=== PATIENT | female | born 1965 | race Two or more races ===

== ENCOUNTER 2024-10-17 06:48 | Emergency (ER) | payer BC ==
[~2024-10-17] VITALS: Ht 160 cm; Wt 86.2 kg
[2024-10-17 07:15] VITALS: RESP 14; O2SAT 96
[2024-10-17 07:36] LABS: Basophils # (auto) 0 10 ^3/uL (0-0.2); Basophils % (auto) 0.3 % (0.0-2.0); Chloride 105 mmol/L (98-107); Eosinophils # (auto) 0 10 ^3/uL (0-0.8); Eosinophils % (auto) 0.2 % (0.0-7.0); Hematocrit 38.9 % (36.0-46.0); Hemoglobin 13.3 g/dL (12.2-16.2); Lymphocytes # (auto) 1.1 10 ^3/uL (0.4-5.4); Lymphocytes % (auto) 14.4 % (10.0-50.0); Mean Corpuscular Hemoglobin 32.7 pg (28.0-32.0); Mean Corpuscular Hgb Conc. 34.1 g/dL (32.0-36.0); Mean Corpuscular Volume 95.9 fL (80.0-100.0); Monocytes # (auto) 0.1 10 ^3/uL (0-1.3); Monocytes % (auto) 1.9 % (0.0-12.0); Neutrophils # (auto) 6.4 10 ^3/uL (1.6-8.6); Neutrophils % (auto) 83.2 % (37.0-80.0); Platelet Count (auto) 371 10^3/uL (140-450); Potassium 3.8 mmol/L (3.5-5.1); Red Blood Cells 4.06 10^6/uL (4.0-5.20); Red Cell Distribution Width 14.2 % (11.8-14.3); Sodium 141 mmol/L (136-145); White Blood Cell 7.6 10^3/uL (4.4-10.8)
[2024-10-17 07:37] LABS: Anion Gap 11 (5-15); Carbon Dioxide 25 mmol/L (20-31)
[2024-10-17 07:38] LABS: Calcium 9.5 mg/dL (8.7-10.4)
[2024-10-17 07:43] LABS: Blood Urea Nitrogen 17 mg/dL (9-23)
[2024-10-17 07:45] LABS: Glucose 140 mg/dL (74-106)
--- NOTE | 2024-10-17 08:03 | DVH ---
EXAM: XR Chest, 1 View CLINICAL INDICATION: sob TECHNIQUE: Frontal view of the chest. COMPARISON: None FINDINGS: LUNGS AND PLEURAL SPACES: Pulmonary venous congestion. No consolidation. No pneumothorax. HEART: Unremarkable. No cardiomegaly. MEDIASTINUM: Unremarkable. Normal mediastinal contour. BONES/JOINTS: Unremarkable. No acute fracture. OTHER FINDINGS: . IMPRESSION: Pulmonary venous congestion.
--- NOTE | 2024-10-17 08:04 | ED.PDOC ---
History of Present Illness HPI Comments 59 y/o obese F, with a history of rheumatoid arthritis, presents with c/o shortness of breath, cough, and congestion, today. Patient reports on recent cough she has that has been ongoing for "awhile," with coughing fit onset having associated "choking" with difficulty breathing, last night and this morning. At time of assessment, patient reports, now, feeling anxious only. She denies any chest pain, nausea, vomiting, fever, chills, or other associated symptoms at this time. Chief Complaint: Palpitations Time Seen by MD: 06:50 Primary Care Provider: ALICIA Evans Notes: Nurses Notes, Medications, Allergies Allergies: Coded Allergies: NO KNOWN ALLERGIES (Unverified , 04/05/12) Information Source: Patient Mode of Arrival: Ambulatory Severity: Moderate Timing: Hours Duration: Since onset Prehospital treatment: None Past Medical History PAST MEDICAL HISTORY: Arthritis (rheumatoid) Past Medical History (Other): obesity Surgical History: Family History Family History: No family hx of DM Social History Smoker: Non-Smoker Alcohol: Denies ETOH Use Drugs: Denies Drug Use Lives In: Home All Other Systems: Reviewed and Negative (Comprehensive systems review obtained and negative except for what is stated in the HPI.) Physical Exam General Appearance: No Apparent Distress, Obese, Other (anxious appearing ) HEENT: Normal ENT Inspection, Pharynx Normal, TMs Normal Neck: Full Range of Motion, Non-Tender, Normal, Normal Inspection Respiratory: Chest Non-Tender, Lungs Clear, No Accessory Muscle Use, No Respiratory Distress, Normal Breath Sounds Cardiovascular: No Edema, No JVD, No Murmur, No Gallop, Normal Peripheral Pulses, Regular Rate/Rhythm Breast Exam: Deferred Gastrointestinal: No Organomegaly, Non Tender, No Pulsatile Mass, Normal Bowel Sounds, Soft Genitalia: Deferred Pelvic: Deferred Rectal: Deferred Extremities: No calf tenderness, Normal capillary refill, Normal inspection, Normal range of motion, Non-tender, No pedal edema Musculoskeletal : Apperance: Normal Neurologic: Alert, heel lift gouger II-XII nml as Tested, No Motor Deficits, Normal Affect, Normal Mood, No Sensory Deficits Cerebellar Function: Normal Reflexes: Normal Skin: Dry, Normal Color, Warm Lymphatic: No Adenopathy Was a procedure done? Was a procedure done?: No EKG EKG : Pulse Rate (adult): 97 [place]: Normal Cardiac Rhythm: NSR Block: None Hypertrophy: None ST: Normal Differential Dx Considerations may include: viral syndrome, URI, PNA, among others X-Ray, Labs, Meds, VS Vital Signs Date Time Temp Pulse Resp B/P (MAP) Pulse Ox O2 Delivery O2 Flow Rate FiO2 10/17/24 10:01 83 22 127/58 (81) 91 10/17/24 09:47 89 10/17/24 08:04 97 10/17/24 08:01 88 20 151/48 (82) 93 10/17/24 08:00 88 10/17/24 07:54 93 10/17/24 07:20 98.2 89 14 127/62 (83) 96 98.2 10/17/24 07:15 14 96 Room Air* 0 21 10/17/24 06:54 97 10/17/24 06:50 96 Room Air* 0 21 10/17/24 06:50 98.0 93 20 153/84 (107) 96 98.0 Lab Test 10/17/24 08:07 10/17/24 07:05 Range/Units Troponin I High Sensitivity < 3 L < 3 L </=34 ng/L White Blood Count 7.6 4.4-10.8 10^3/uL Red Blood Count 4.06 4.0-5.20 10^6/uL Hemoglobin 13.3 12.2-16.2 g/dL Hematocrit 38.9 36.0-46.0 % Mean Corpuscular Volume 95.9 80.0-100.0 fL Mean Corpuscular Hemoglobin 32.7 H 28.0-32.0 pg Mean Corpuscular Hemoglobin Concent 34.1 32.0-36.0 g/dL Red Cell Distribution Width 14.2 11.8-14.3 % Platelet Count 371 140-450 10^3/uL Mean Platelet Volume 7.6 6.9-10.8 fL Neutrophils (%) (Auto) 83.2 H 37.0-80.0 % Lymphocytes (%) (Auto) 14.4 10.0-50.0 % Monocytes (%) (Auto) 1.9 0.0-12.0 % Eosinophils (%) (Auto) 0.2 0.0-7.0 % Basophils (%) (Auto) 0.3 0.0-2.0 % Neutrophils # (Auto) 6.4 1.6-8.6 10 ^3/uL Lymphocytes # (Auto) 1.1 0.4-5.4 10 ^3/uL Monocytes # (Auto) 0.1 0-1.3 10 ^3/uL Eosinophils # (Auto) 0 0-0.8 10 ^3/uL Basophils # (Auto) 0 0-0.2 10 ^3/uL Nucleated Red Blood Cells 0.0 % Sodium Level 141 136-145 mmol/L Potassium Level 3.8 3.5-5.1 mmol/L Chloride Level 105 98-107 mmol/L Carbon Dioxide Level 25 20-31 mmol/L Anion Gap 11 5-15 Blood Urea Nitrogen 17 9-23 mg/dL Creatinine 0.74 0.550-1.02 mg/dL Glomerular Filtration Rate Calc 92 >90 mL/min BUN/Creatinine Ratio 23.0 H 10.0-20.0 Serum Glucose 140 H 74-106 mg/dL Calcium Level 9.5 8.7-10.4 mg/dL Time of 1ST Reevaluation: 07:20 Reevaluation 1ST: Unchanged Patient Education/Counseling: Diagnosis, Treatment Family Education/Counseling: No Family Present Additional Information Previous medical encounters reviewed: n/a The following tests were ordered, and results were reviewed by me: CXR, CBC, BMP, EKG, troponin Additional Information was gathered from interviewing the following independent historians: n/a I reviewed and agreed with the following test results read by other providers: CXR I discussed treatment and results with medical personnel and: Patient Departure 1 Departure Time of Disposition: 10:43 (Patient presented with chest pain , palpitations, shortness of breath that was concerning for possible STEMI, ACS, PE, Pneumonia, Muscle Strain, COPD, Dissection. Data: 1. I ordered and reviewed the result of at least 3 labs including a CBC, BMP, and Troponin. 2. I independently interpreted the following tests: EKG which shows normal sinus and Chest X-ray which shows pulmonary vascular congestion.Risk:This patient has a high risk of morbidity due to further diagnostic testing or treatment and may suffer from an acute cardiac or respiratory disorder. Workup reveals concern for ACS and patient should be admitted for further workup and possible expert consultation. ) Impression: Primary Impression: Shortness of breath Additional Impression: Palpitations Disposition: 09 ADMITTED INPATIENT Admit to: Med Surg Condition: Serious Critical Care Note Critical Care Time?: Yes Critical care comment: Shortness of breath Authorized and Performed by: Anuja Garza MD Total critical care time: Approximately 39 minutes Due to a high probability of clinically significant, life threatening deterioration, the patient required my highest level of preparedness to intervene emergently and I personally spent this critical care time directly and personally managing the patient. This critical care time included obtaining a history; examining the patient; pulse oximetry; ordering and review of studies; arranging urgent treatment with development of a management plan; evaluation of patient's response to treatment; frequent reassessment; and, discussions with other providers. This critical care time was performed to assess and manage the high probability of imminent, life-threatening deterioration that could result in multi-organ failure. It was exclusive of separately billable procedures and treating other patients and teaching time. Please see my other sections and the rest of the note for further information on patient assessment and treatment. Stability Stability form required: No Heart Score Heart Score: Heart Score Response (Comments) Value History Slightly Suspicious 0 EKG Normal 0 Age 45-64 1 Risk Factors No known risk factors 0 Troponin Normal limit 0 Total 1 I personally scribed for ANUJA GARZA MD ([email or web address]) on 10/17/24 at 08:04. Electronically submitted by Niko Camarillo ([email or web address]). ANUJA GARZA MD Oct 17, 2024 08:04
--- NOTE | 2024-10-17 09:48 | ECG ---
[facility] Test Date: 2024-10-17 Test Time: 09:47:20 Pat Name: JC BAER Department: ER Room: Gender: F Security Team Lead: FRANKIE : 1965 Requested By: ANUJA GARZA Order Number: [id number] Reading MD: Measurements Intervals [place] Rate: 89 P: 70 VA: 153 QRS: 59 QRSD: 78 T: 54 QT: 389 QTc: 474 Interpretive Statements Sinus rhythm Please click the below link to view image of tracing.
--- NOTE | 2024-10-17 10:30 | ECG ---
[facility] Test Date: 2024-10-17 Test Time: 07:54:40 Pat Name: JC BAER Department: ED Room: Gender: F Wreath Machine Operator: maria elena : 1965 Requested By: ANUJA GARZA Order Number: [id number] Reading MD: Measurements Intervals [place] Rate: 93 P: 64 MI: 160 QRS: 53 QRSD: 81 T: 57 QT: 376 QTc: 468 Interpretive Statements Sinus rhythm Please click the below link to view image of tracing.
[2024-10-17] MEDS: FUROSEMIDE 20 MG/2 ML VIAL IV ONE (10:45)
[2024-10-17] MEDS ORDERED: FOLI-119 PO (10:53)
[2024-10-17] MEDS ORDERED: METH2.5T62 PO (10:53)
[2024-10-17] MEDS ORDERED: HYDR200T36 PO (10:53)
--- NOTE | 2024-10-17 11:17 | ED.PDOC ---
Departure 1 Departure Time of Disposition: 11:16 (Patient's side she would not want to be admitted. Discharge patient home with outpatient follow up) Impression: Primary Impression: Shortness of breath Additional Impression: Palpitations Disposition: HOME / SELF CARE / HOMELESS Condition: Stable Additional Instructions: You presented today with shortness of breath. Your workup today was benign including labs, troponin, EKG, chest x-ray. You can take over the counter pseudoephedrine as needed for congestion. It is important to follow up with your regular doctor within 1 week. If your symptoms worsen or you have any other concerns please return to the emergency room. Discharged With: Self ANUJA GARZA MD Oct 17, 2024 11:17
[2024-10-17 11:47] VITALS: BP 122/61; PULSE 83; RESP 13; TEMP 98.6; O2SAT 92
--- NOTE | 2024-10-17 19:08 | ECG ---
[facility] Test Date: 2024-10-17 Test Time: 06:54:55 Pat Name: JC BAER Department: ED Room: Gender: F Tipple Oiler: JON : 1965 Requested By: ANUJA GARZA Order Number: [id number] Reading MD: Measurements Intervals [place] Rate: 97 P: 72 DC: 153 QRS: 71 QRSD: 83 T: 49 QT: 370 QTc: 470 Interpretive Statements Sinus rhythm Please click the below link to view image of tracing.
== END 2024-10-17 11:50 | disposition home or self-care (01) ==
LOC: ER 06:48
DX: R06.02 Shortness of breath (principal); R00.2 Palpitations; R05.9 Cough, unspecified; F41.9 Anxiety disorder, unspecified; M06.9 Rheumatoid arthritis, unspecified; E66.9 Obesity, unspecified; Z98.890 Other specified postprocedural states
CPT/HCPCS: 36415; 71045; 80048; 84484; 85025; 93005